=== PATIENT | male | born 2000 | race Caucasian/White ===

== ENCOUNTER → 2020-01-07 | Outpatient (REF) | payer BC ==
[2020-01-07 11:43] LABS: BASO # 0.1 10^3/uL (0.0-0.2); BASO % 1.2 % (0.0-1.0); EOS # 0.2 10^3/uL (0.0-0.5); EOS % 4.3 % (0.0-3.0); HEMATOCRIT 43.9 % (42.0-52.0); HEMOGLOBIN 15.2 g/dl (13.5-17.5); LYMPH # 1.6 10^3/uL (1.5-5.0); LYMPH % 31.2 % (24.0-44.0); MEAN CORPUSCULAR HEMOGLOBIN 32.4 pg (27.0-33.0); MEAN CORPUSCULAR HGB CONC 34.6 g/dl (32.0-36.5); MEAN CORPUSCULAR VOLUME 93.6 fl (80.0-96.0); MONO # 0.4 10^3/uL (0.0-0.8); MONO % 8.1 % (0.0-5.0); NEUTROPHILS # 2.8 10^3/uL (1.5-8.5); NEUTROPHILS % 54.8 % (36.0-66.0); PLATELET COUNT, AUTOMATED 259 10^3/uL (150-450); RED BLOOD COUNT 4.69 10^6/uL (4.30-6.10); WHITE BLOOD COUNT 5.1 10^3/uL (4.0-10.0)
[2020-01-07 12:40] LABS: ERYTHROCYTE SEDIMENTATION RATE 2 mm/hr (0-15)
[2020-01-07 13:23] LABS: ALBUMIN 4.4 GM/DL (3.2-5.2); ALT/SGPT 23 U/L (12-78); BILIRUBIN,TOTAL 0.5 MG/DL (0.2-1.0); BLOOD UREA NITROGEN 15 MG/DL (7-18); C REACTIVE PROTEIN QUANTITATIV < 0.30 MG/DL (0.00-0.30); CARBON DIOXIDE LEVEL 25 MEQ/L (21-32); CHLORIDE LEVEL 104 MEQ/L (98-107); CHOLESTEROL LEVEL 230 MG/DL (<200); CHOLESTEROL RISK RATIO 3.898 (<5); CREATININE FOR GFR 0.85 MG/DL (0.70-1.30); FREE T4 1.03 NG/DL (0.76-1.46); GLOMERULAR FILTRATION RATE > 60.0 (>60); GLUCOSE, FASTING 89 MG/DL (70-100); HDL CHOLESTEROL 59 MG/DL (>40); LDL CHOLESTEROL 161 MG/DL (<100); NON-HDL-C 171 MG/DL; POTASSIUM SERUM 4.1 MEQ/L (3.5-5.1); RHEUMATOID FACTOR QUANT < 10.0 IU/ML (<15.0); SODIUM LEVEL 137 MEQ/L (136-145); TOTAL PROTEIN 8.3 GM/DL (6.4-8.2); TRIGLYCERIDES LEVEL 50 MG/DL (<150)
[2020-01-09 00:07] LABS: ANA (HEP2) Negative (.); Lyme Disease IgG/IgM Antibodie <0.91 ISR (0.00-0.90); Lyme Disease IgM Ab Quantitati <0.80 index (0.00-0.79)
[2020-01-12 10:16] LABS: DRVV SCREEN 46.8 SEC
[2020-01-12 10:22] LABS: PTT LUPUS TYPE ANTICOAG SCREEN 1.2 (0-1.2)
[2020-01-12 10:29] LABS: DRVV CONFIRM 36.8 SEC; LUPUS CONFIRM RATIO 0.9
[2020-01-12 10:32] LABS: NORMALIZED RATIO 1.33 (0.00-1.20)
[2020-01-19 08:40] LABS: HEXAGONAL PHASE PHOSPHOLIPID 0 sec
== END ==
LOC: M SFHCCLAY 08:25
PROVIDERS: ATTEND Nurse Practitioner Family
DX: M25.50 Pain in unspecified joint (principal); K90.0 Celiac disease; F41.8 Other specified anxiety disorders; E78.49 Other hyperlipidemia